=== PATIENT | female | born 1955 | race Caucasian/White ===

== ENCOUNTER → 2021-01-31 10:22 | Outpatient (BNVA) | payer MEDICARE, SELFPAY | PROVIDERS: PCP Internal Medicine; Visit Provider Surgery Vascular Surgery | DX: I83.11 Varicose veins of right lower extremity with inflammation (principal) | CPT/HCPCS: 99202 ==

== ENCOUNTER → 2021-02-24 08:53 | Outpatient (BNVA) | payer MEDICARE, SELFPAY | PROVIDERS: PCP Internal Medicine; Visit Provider Surgery Vascular Surgery | DX: I83.11 Varicose veins of right lower extremity with inflammation (principal) | CPT/HCPCS: 36482 ==

== ENCOUNTER 2021-02-27 12:39 | Outpatient (REF) | payer MEDICARE, SELFPAY ==
--- NOTE | ~2021-02-27 | US_ITS ---
EXAMINATION: US VENOUS ULTRASOUND WITH DOPPLER LOWER EXTREMITY, RIGHT CLINICAL INFORMATION: Post right leg RFA COMPARISON: None TECHNIQUE: Ultrasound of the deep veins is performed from the hip to the calf with compression sonography and color and pulse Doppler assessment. Spectral analysis with color-flow imaging is performed. FINDINGS: There is normal venous compression and respiratory variation and augmented flow. The visualized common femoral vein, superficial femoral vein, profunda femoral vein, popliteal vein, and the trifurcation region shows no evidence of deep venous thrombosis. The right greater saphenous vein is closed. This extends to 3.2 cm from the saphenofemoral junction. There is no Sargent's cyst. US/US venous duplex LE RT IMPRESSION: No DVT demonstrated in the right lower extremity.
== END 2021-02-27 12:40 | disposition home or self-care (01) ==
LOC: HO.HMGCX 12:39
PROVIDERS: PCP Internal Medicine; Visit Provider Surgery Vascular Surgery
DX: M79.604 Pain in right leg (principal)
CPT/HCPCS: 93971

== ENCOUNTER → 2021-03-09 13:34 | Outpatient (BNVA) | payer MEDICARE, SELFPAY | PROVIDERS: PCP Internal Medicine; Visit Provider Surgery Vascular Surgery | DX: I83.11 Varicose veins of right lower extremity with inflammation (principal) | CPT/HCPCS: 99212 ==

== ENCOUNTER → 2021-08-22 13:55 | Outpatient (BNVA) | payer MEDICARE, SELFPAY | PROVIDERS: PCP Internal Medicine; Visit Provider Surgery Vascular Surgery | DX: I83.11 Varicose veins of right lower extremity with inflammation (principal); J30.1 Allergic rhinitis due to pollen; Z88.1 Allergy status to other antibiotic agents; Z91.040 Latex allergy status | CPT/HCPCS: 99212 ==